=== PATIENT | female | born 1990 | race Caucasian/White ===

== ENCOUNTER 2025-01-19 06:50 | Day surgery (SDC) | payer OTHER ==
[~2025-01-19] VITALS: Ht 160 cm; Wt 58.0 kg
[2025-01-19] MEDS ORDERED: LR 1,000 ML IV SCH ×2 (07:30→09:25)
[2025-01-19] MEDS ORDERED: propofoL 200 MG/20 ML VIAL As Ordered ONE (08:17)
[2025-01-19] MEDS ORDERED: fentaNYL 100 MCG/2 ML INJECTION As Ordered ONE (08:17)
[2025-01-19] MEDS ORDERED: LIDOCAINE 2% 100MG/5ML SDV (FOR ANES.) As Ordered ONE (08:17)
[2025-01-19] MEDS ORDERED: MIDAZOLAM INJ 2MG/2ML VIAL As Ordered ONE (08:18)
[2025-01-19] MEDS: ceFAZolin SODIUM 2 GM VIAL As Ordered ONE (08:50)
[2025-01-19] MEDS ORDERED: ONDANSETRON 4MG 2ML VIAL As Ordered ONE (08:52)
[2025-01-19] MEDS ORDERED: KETOROLAC 30 MG/ML 1ML VIAL As Ordered ONE (09:09)
[2025-01-19] MEDS ORDERED: ACETAMINOPHEN 1000MG/100ML IV BAG As Ordered ONE (09:09)
[2025-01-19] MEDS: LIDOCAINE 1% SDV 30ML VIAL As Ordered ONE (09:11)
[2025-01-19] MEDS ORDERED: HYDROMORPHONE HCL 0.5 MG/ 0.5 ML SYRINGE IV PRN (09:25)
[2025-01-19] MEDS ORDERED: fentaNYL 100 MCG/2 ML INJECTION IV PRN (09:25)
[2025-01-19] MEDS ORDERED: ONDANSETRON 4MG 2ML VIAL IV PRN (09:25)
[2025-01-19] MEDS ORDERED: oxyCODONE 5MG TAB PO PRN (09:25)
[2025-01-19] MEDS ORDERED: HYDR-3713 PO (09:48)
[2025-01-19 10:25] VITALS: BP 102/57; TEMP 97.2; O2SAT 100
== END 2025-01-19 10:28 | disposition home or self-care (01) ==
LOC: M SDC 06:50
PROVIDERS: ATTEND Neuromusculoskeletal Medicine, Sports Medicine
DX: G56.01 Carpal tunnel syndrome, right upper limb (principal); J45.909 Unspecified asthma, uncomplicated; Z86.711 Personal history of pulmonary embolism
CPT/HCPCS: 64721; 81025; J0131; J0690; J1100; J1885; J2250; J2405; J3010

== ENCOUNTER 2025-02-02 05:55 | Day surgery (SDC) | payer OTHER ==
[~2025-02-02] VITALS: Ht 160 cm; Wt 58.3 kg
[~2025-02-02 05:55] MED LIST: HYDR-3713 PO
[2025-02-02] MEDS ORDERED: IBUP-1729 PO (06:50)
[2025-02-02] MEDS ORDERED: propofoL 200 MG/20 ML VIAL As Ordered ONE (06:52)
[2025-02-02] MEDS ORDERED: LIDOCAINE 2% 100MG/5ML SDV (FOR ANES.) As Ordered ONE (06:52)
[2025-02-02] MEDS ORDERED: MIDAZOLAM INJ 2MG/2ML VIAL As Ordered ONE (06:52)
[2025-02-02] MEDS ORDERED: fentaNYL 100 MCG/2 ML INJECTION As Ordered ONE (06:53)
[2025-02-02] MEDS: LR 1,000 ML IV SCH (06:56)
[2025-02-02] MEDS ORDERED: propofoL 500 MG/50 ML VIAL As Ordered ONE (07:19)
[2025-02-02] MEDS: ceFAZolin SODIUM 2 GM VIAL As Ordered ONE (07:29)
[2025-02-02] MEDS ORDERED: dexmedeTOMIDine (4MCG/ML)200MCG/50ML BTL (PRECEDEX) As Ordered ONE (07:38)
[2025-02-02] MEDS: ceFAZolin SOD 2 GM IV ONCE IV ONE (08:07)
[2025-02-02 09:06] VITALS: BP 112/64; TEMP 98.2; O2SAT 100
[2025-02-02] MEDS ORDERED: ePHEDrine SULFATE 25 MG/5 ML(5MG/ML) SYRINGE As Ordered ONE (10:04)
[2025-02-02] MEDS ORDERED: EPINEPHrine 1MG/10ML SYRINGE 1.5IN As Ordered ONE (10:05)
[2025-02-02] MEDS ORDERED: PHENYLEPHRINE 10MG/ML 1ML VIAL As Ordered ONE (10:05)
== END 2025-02-02 09:07 | disposition home or self-care (01) ==
LOC: M SDC 05:55 → EDUNIT# 07:30 → M SDC 09:07
PROVIDERS: ATTEND Neuromusculoskeletal Medicine, Sports Medicine
DX: G56.02 Carpal tunnel syndrome, left upper limb (principal); Z98.890 Other specified postprocedural states
CPT/HCPCS: 64721; 81025; J0171; J0665; J0690; J2250; J2371; J3010